=== PATIENT | female | born 1945 | race Caucasian/White ===

== ENCOUNTER 2022-06-16 09:11 | Outpatient (CLI) | payer MEDICARE, SELFPAY ==
--- NOTE | 2022-06-16 10:04 | ECG_ITS ---
Measurements Intervals [place] Rate: 64 P: -2 [place]: 137 QRS: -22 QRSD: 102 T: 7 QT: 429 QTc: 443 Interpretive Statements SINUS RHYTHM BORDERLINE LEFT AXIS DEVIATION [QRS AXIS < -20] NO PREVIOUS ECG AVAILABLE FOR COMPARISON Electronically Signed On 06-16-2022 16:34:14 ACADEMIC SUCCESS COORDINATOR by Avril Saucedo M.D.
[2022-06-16 10:22] LABS: Hematocrit 39.6 % (37.0-47.0); Hemoglobin 12.5 g/dL (12.0-15.0)
[2022-06-16 10:33] LABS: Urine Cotinine NEGATIVE
[2022-06-16 10:40] LABS: Albumin Level 4.4 g/dL (3.5-5.1)
[2022-06-16 11:29] LABS: Estimated Glomerular Filt Rate 54; Glucose 99 mg/dL (65-110)
[2022-06-16 12:47] LABS: Hemoglobin A1C 6.2 % (<5.7)
== END 2022-06-16 09:12 | disposition home or self-care (01) ==
LOC: ANHLAB 09:15
PROVIDERS: PCP Internal Medicine; Visit Provider Orthopaedic Surgery
DX: E78.5 Hyperlipidemia, unspecified (principal); Z79.899 Other long term (current) drug therapy; M17.12 Unilateral primary osteoarthritis, left knee; G47.33 Obstructive sleep apnea (adult) (pediatric); I10 Essential (primary) hypertension; I63.9 Cerebral infarction, unspecified
CPT/HCPCS: 80307; 82040; 82565; 82947; 83036; 85014; 85018; 93005

== ENCOUNTER 2022-07-23 09:40 | Outpatient (CLI) | payer MEDICARE, SELFPAY ==
[2022-07-23 11:14] LABS: Basophils Percent Auto 0.4 % (0.2-1.2); Eosinophils Absolute Auto 0.4 K/mm3 (0-0.3); Eosinophils Percent Auto 5.7 % (0-4.4); Hematocrit 37.6 % (37.0-47.0); Hemoglobin 12.1 g/dL (12.0-15.0); Immature Granulocyte Absolute 0.01 K/mm3 (0.00-0.031); Immature Granulocyte Percent A 0.1 % (0-0.5); Lymphocytes Absolute Auto 1.58 K/mm3 (0.9-3.2); Lymphocytes Percent Auto 23.5 % (18.3-44.2); Mean Corpuscular HGB Conc 32.2 g/dl (32-36); Mean Corpuscular Hemoglobin 28.7 pg (26-34); Mean Corpuscular Volume 89.3 fl (80-100); Mean Platelet Volume 9.6 fl (7.4-10.4); Monocytes Absolute Auto 0.6 K/mm3 (0.1-0.6); Monocytes Percent Auto 9.5 % (2.6-8.5); Neutrophils Absolute Auto 4.1 K/mm3 (1.3-6.7); Neutrophils Percent Auto 60.8 % (45.5-73.1); Platelet Count Result 269 k/mm3 (150-375); Red Blood Count 4.21 M/mm3 (4.2-5.4); Red Cell Distribution Width 13.2 % (11.5-14.5); White Blood Count 6.7 K/mm3 (4.5-10.0)
[2022-07-23 11:31] LABS: Anion Gap 8 mmol/L (8-16); Blood Urea Nitrogen 16 mg/dL (7-17); Calcium 8.8 mg/dL (8.4-10.2); Carbon Dioxide 29 mmol/L (22-30); Chloride 100 mmol/L (98-107); Estimated Glomerular Filt Rate > 60; Glucose 94 mg/dL (65-110); Potassium 4.1 mmol/L (3.4-5.0); Sodium 137 mmol/L (137-145)
== END 2022-07-23 09:41 | disposition home or self-care (01) ==
LOC: ANHSURGERY 09:46
PROVIDERS: Anesthesiology; PCP Internal Medicine; Visit Provider Orthopaedic Surgery
DX: M17.12 Unilateral primary osteoarthritis, left knee (principal); I10 Essential (primary) hypertension; Z01.818 Encounter for other preprocedural examination
CPT/HCPCS: 36415; 80048; 85025; 87081

== ENCOUNTER 2022-08-18 03:10 | Day surgery (SDC) | payer MEDICARE, SELFPAY ==
[2022-07-23 09:52] VITALS: BMI 38.0
--- NOTE | 2022-07-23 10:20 | PC.NURSE ---
Addendum entered by Billie Leonardo RN 07/23/22 10:29: IBURPOFEN 7 DAYS PRE OP. MAY TAKE TYLENOL IF NEEDED FOR PAIN Original Note: Report to the Outpatient Waiting Room, entrance under the green pavilion located off [facility], at time _1130 on date _08/18/22 . Planned Procedure Time: __1330 . Time changes happen often and if your time is changed the preop area will call you the afternoon before. - You and your visitor will be asked to self-screen and do not enter if you have any COVID symptoms. - Only one visitor is requested with a max of two and NO children visitors are allowed at this time. - The patient visitor may be requested to leave or wait in car when not with patient due to distancing restrictions. - A mask is optional within the hospital. Patients may have clear liquids (water, carbonated beverages, clear teas, apple juice) until 3 hours prior to surgery with a maximum of 20 ounces. - No food from midnight until time of surgery - Infants may have breast milk until 4 hours before surgery, formula 6 hours prior to surgery. - Children will be allowed to drink immediately following surgery. If applicable, please bring a bottle or sippy cup to assist with drinking. Juice, water, soda, and popsicles are readily available. For infants on formula, please bring formula the day of surgery. Pacifiers are allowed. Take the following medications with a SIP of water the morning of surgery: ___FLUOXETINE Medications to discontinue per physician ____ASPIRIN 7 DAYS PRE OP PER DR TREJO LAST DOSE 08/10/22. ALL VITAMINS AND SUPPLEMENTS 3 DAYS PRE OP LAST DOSE 08/14/22 TOTAL JOIINT CLASS 08/05/22 AT 10 AM Please no make-up, nail faroese, hairspray, perfume, deodorant, or body powder the day of surgery. No jewelry (including any body piercings) or valuables the day of surgery, leave them at home. Please take a shower or bath the night before, or the morning of, surgery with an antibacterial soap. Wear comfortable, loose fitting clothing. Children are encouraged to wear pajamas. - Jewelry must be removed prior to entering the operating room. Rings and piercings that are not removed may be cut off. - The hospital will not accept responsibility for valuables. - Please leave all valuables, including medications, at home the day of surgery. If you are going home after surgery, a licensed auto driver must drive you home. - NO public transportation without another adult if you receive anesthesia. - We recommend that an adult stay with you for 24 hours following discharge. - We also recommend that you do not drive, make important decision, drink alcoholic beverages, or take any drugs that were not prescribed by your health care provider for at least 24 hours after your discharge time. Follow any additional instructions given to you from your surgeon. If you or anyone in your household have experienced Covid symptoms in the past week, please notify your surgeon or the nurse liaison at the phone number below for possible testing. VERBAL AND WRITTEN instructions given to __PATIENT and asked if any additional questions and then verbalized understanding. Patient advised to call surgeon office or pre surgery nurse liaison [phone] if any additional questions.
[2022-07-23 10:39] VITALS: BP 134/55; PULSE 68; RESP 18; TEMP 36.8; O2SAT 97
--- NOTE | 2022-08-17 15:43 | WPDANESEPPF ---
Anes - Initial Pre Proc Eval Procedure: Operation Date: 08/18/22 13:30 Proposed Procedures p Left Total Knee Arthroplasty - Jarred Rose MD Date/Time: 08/17/22 15:43 Surgeon: Jarred Rose MD Pre Op Diagnosis: primary OA left knee Patient Data Age: 76 Gender: F Height: 1.5 m Weight: 85.4 kg Last Vital Signs Temp 36.8 C 07/23/22 10:39 Pulse 68 07/23/22 10:39 Resp 18 07/23/22 10:39 BP 134/55 L 07/23/22 10:39 Pulse Ox 97 07/23/22 10:39 O2 Del Method Room Air 07/23/22 10:39 Allergies Allergy/AdvReac Type Severity Reaction Status Date / Time codeine Allergy Unknown Nausea and Verified 08/03/22 08:34 Vomiting cod liver oil Allergy unknown Verified 08/03/22 08:34 Home Medications Medication Instructions Recorded Confirmed Type aspirin 81 mg tablet,delayed 81 mg PO DAILY 09/11/19 08/03/22 History release (Adult Aspirin Regimen) fluoxetine 20 mg capsule (Prozac) 20 mg PO DAILY 09/11/19 08/03/22 History hydroxychloroquine 200 mg tablet 200 mg PO DAILY 09/11/19 08/03/22 History multivitamin 1 tablet PO DAILY 09/11/19 08/03/22 History calcium carbonate 600 mg-vitamin 1 tablet PO DAILY 07/23/22 08/03/22 History D3 10 mcg (400 unit) tablet (Calcium 600 + D(3)) dicyclomine 10 mg capsule 10 mg PO PRN PRN Diarrhea 07/23/22 08/03/22 History famotidine 20 mg tablet (Pepcid) 20 mg PO PRN PRN Heartburn 07/23/22 08/03/22 History ibuprofen 400 mg tablet 400 mg PO Q6H PRN Pain 07/23/22 08/03/22 History triamterene 37.5 1 cap PO DAILY 07/23/22 08/03/22 History mg-hydrochlorothiazide 25 mg capsule Patient hx anesthesia problems: none Family hx anesthesia problems: none Results Review: All pre-operative results and documents have been reviewed as part of the pre-operative evaluation. [facility] Past Medical History Medical History Brainstem stroke syndrome Candidal intertrigo CVA (cerebral vascular accident) (~2010) Depression GERD (gastroesophageal reflux disease) Hidradenitis History of stroke Hyperlipidemia Hypersomnia with sleep apnea Hypertension Obstructive sleep apnea Osteoarthritis of right shoulder Severe obesity Sleep apnea Vitamin D deficiency Surgical History Surgical History History of appendectomy (~2017) History of arthroscopic knee surgery (~2000) History of breast biopsy (~1998) History of carpal tunnel release History of cataract extraction (~2000) History of cataract extraction (~2003) History of elbow surgery (~1991) History of knee joint replacement (~05/23/13) History of lumpectomy (~1990) History of thumb surgery (~2002) Family History Family History Father Hypertension Cerebrovascular accident Other Breast cancer Social History Social History Smoking packs per day: 0.5 Smoking cigarettes per day: 10.0 Years smoked: 15 Smoking pack-years: 7.50 Smoking status: Former smoker Tobacco type: cigarettes Smoking end date: 07/05/76 Additional smoking assessment comments: DENIES ANY FORM OF TOBACCO USE Alcohol intake: former Alcohol use details: RECOVERING ALCOHOLIC SINCE 1983 Living arrangements: alone Spiritual care concerns: No Anes - Eval Final PreProcedure Day of Procedure 08/17/22 15:43 Patient weight: obese Heart: regular rate and rhythm Lungs: clear to auscultation and normal air movement Airway: Mallampati scale class II Neurological: alert and oriented Last oral intake: >/= 8 hours ASA classification: III Emergent: no Anesthetic plan: proceed Anesthesia type and monitoring: general LMA Results Review: All pre-operative results and documents have been reviewed as part of the pre-operative evaluation. Informed Consent: The patient's anesthetic pl
[2022-08-18] VITALS (12 sets, daily range): BP systolic 119–154; BP diastolic 51–76; PULSE 70–91; RESP 12–20; TEMP 36.3–37; O2SAT 93–100
--- NOTE | ~2022-08-18 | XR_ITS ---
EXAMINATION: XR knee LT 2V DATE: 08/18/2022 16:31 INDICATION: Total left knee arthroplasty. Postop. TECHNIQUE: 2 views of left knee were obtained. COMPARISON: Left knee radiographs 06/03/2022 FINDINGS: There is a total left knee arthroplasty with patellar resurfacing in near-anatomic alignmen t. No fracture. There is gas in the knee joint, consistent with recent surgery. IMPRESSION: 1. Total left knee arthroplasty in near-anatomic alignment. Reviewed, dictated and finalized at location A. SSRS DEVELOPER
--- NOTE | 2022-08-18 07:26 | WPDHPUPDATE1 ---
History and Physical Update Update Date/Time: 08/18/22 07:26 History and Physical has been reviewed, including an updated exam of the patient. There are NO changes in the patient's condition. Risks, benefits, and alternatives have been discussed and questions answered. Patient agrees to proceed with procedure.
--- NOTE | 2022-08-18 11:33 | WPDANESPNB ---
Anes - Peripheral Nerve Block Date/Time: 08/18/22 11:33 I have discussed with the patient/family/POA the placement of a peripheral nerve block for post-operative pain management, including associated risks, benefits, complications, and side effects. Alternative methods of post-operative analgesia were detailed. Questions were solicited and answers provided to the satisfaction of the patient/family/POA. Time-Out: A pre-procedural Time-Out was completed immediately before starting the procedure and confirmed: Patient Identification, Site, Procedure, Patient Position and the Availability of Requisite Equipment. Clinical Indications: Acute post-operative pain management requested by the operative surgeon. Nerve Block Insertion Note Anes-nerve block: adductor canal left Patient position: supine Skin prep: chlorhexidine Needle: 22 gauge, stimulating, insulated echogenic needle. Needle length: 80 mm Technique: ultrasound Technique comment: in plane Injectate: bupivacaine 0.25% with epi 5 mcg/ml (30cc) Observations: tolerated well Complications: none Procedure start time:: 1345 Procedure end time:: 1350
[2022-08-18] MEDS: TRANEXAMIC ACID 1,000MG/ISO100 1,000 MG/100 ML BAG 200 MG IVPB (12:00)
[2022-08-18] MEDS: LACTATED RINGERS 1,000 ML 30 ML IV CONT ×2 (12:00→16:09)
[2022-08-18] MEDS: ACETAMINOPHEN 500 MG TABLET 1000 MG PO (12:00)
[2022-08-18] MEDS: ceFAZolin 2 GM/D5W 50 ML 2 GM/50 ML BAG IVPB ×2 (14:06→21:07)
[2022-08-18] MEDS: GENTAMICIN BONE CEMENT REFOBACIN 1 EACH TOPICAL (14:50)
[2022-08-18] MEDS: TRANEXAMIC ACID 1,000 MG/10 ML AMPUL 1000 MG IV PUSH (15:46)
[2022-08-18] MEDS: fentaNYL CITRATE INJ (*CRX) 100 MCG/2 ML VIAL 25 MCG IV PUSH ×4 (16:26→16:44)
--- NOTE | 2022-08-18 17:12 | ADMGEN ---
This patient, Ely Chin, was admitted to Medical Room 252-01. Patient/family oriented to hospital policies and general routines including ID bracelet, bed and alarms, visiting hours, pain management, procedures, bathroom and other care routines, personal items, smoking policy, room service/diet, and visiting hours. Information on how to activate the Rapid Response Team has been discussed. Patient/Family are encouraged to report perceived risks to care and to ask questions if they do not understand what they are told or what they should do.
--- NOTE | 2022-08-18 17:21 | W.PM.PROC2 ---
Procedure Note - Detailed Date of Procedure 08/18/22 Pre-op Diagnosis primary OA left knee Post-op Diagnosis Same Procedure Performed Total knee arthroplasty, left. Surgeon Jarred Rose MD Pipe Line Maintenance Supervisor Kacy Stephenson PA-C Anesthesia General and Regional (subsartorial block) Findings Good bone quality. Moderate medial release. Significant out-toeing and preoperative contracture. 15 degree flexion contracture. Description of Procedure The patient was brought to the operating room. A general anesthetic was administered. The leg was prepped and draped in the usual sterile fashion. The limb was elevated and the tourniquet inflated to 300 mmHg during initial exposure, and cementation. A longitudinal incision was created along the medial border of the patella and patellar tendon, and a trivector approach to the knee was performed. A moderate medial release was taken. The knee was then flexed. The osteophytes were carefully removed. The intramedullary guide was placed in the femoral canal. The distal femoral resection was then taken with the oscillating saw. The collateral ligaments were carefully protected. The tibia was carefully exposed. The jig was applied, and the proximal tibia was resected according to preoperative plan. The knee was balanced in extension. Appropriate releases were taken where needed. The anterior cruciate ligament and meniscal remnants were removed. The posterior cruciate ligament was preserved. The patella was measured. Patellar resection was carried out with the oscillating saw. The lug holes drilled. The femur was sized and rotation assessed using a combination of gap balancing, posterior referencing, and the AP axis. The 4 in 1 cutting block was used to finish the femoral cuts after equal gaps were assured. The osteophytes were carefully removed from the back of the knee. The knee was copiously irrigated with antibiotic solution periodically throughout the procedure. The meniscal remnants were removed. The spacer block was used to confirm equal flexion and extension gaps. No further releases were needed. The tibia was sized and broached. The bony surfaces were prepared for cementing with pulsatile lavage. The real tibia was cemented into position. The femur was press-fit. The patella was press-fit. Excess cement was carefully removed. Patellar tracking was carefully assessed. No additional releases were required. Dilute sterile Betadine soak performed for three minutes. Copious irrigation then performed. The wound was closed with #1 Vicryl suture, #2, 2-0, and 3-0 barbed suture, followed by Steri-Strips. A sterile bulky dressing was applied. Meticulous hemostasis was maintained throughout the procedure, and the bipolar cautery device was used. The pain relieving mixture was injected into the periarticular tissues during the procedure. There were no complications. The patient was extubated and brought to the recovery room in stable condition after the application of sterile dressing with Luther bandage. Implants [employer] Triathlon knee system, low profile cemented tibia size 3, press-fit cruciate retaining femoral component size 3 ,and an 11 mm cruciate stabilizing polyethylene insert. 32mm asymmetric metal backed tritanium patella component. Estimated Blood Loss 100 Drains No Pathology None sent Complications No immediate complications Condition Stable Disposition PACU [facility] Billing Surgery - Charge Forward: Surgery Billing
[2022-08-18] MEDS: oxyCODONE HCL (*CRX) 5 MG TAB IR PO ×2 (17:29→21:07)
[2022-08-18] MEDS: SENNA/DOCUSATE SODIUM TABLET 2 TAB PO (17:29)
[2022-08-18] MEDS: SODIUM CHLORIDE 0.9% IV 1,000 ML 125 ML IV CONT (17:41)
[2022-08-18] MEDS: MELOXICAM 7.5 MG TABLET PO (18:10)
[2022-08-18] MEDS: ASPIRIN 81 MG ENTERIC TABLET PO (18:10)
[2022-08-18] MEDS: CYCLOBENZAPRINE HCL 10 MG TABLET PO (19:26)
--- NOTE | 2022-08-18 19:31 | PC.NURSE ---
pt up to restroom x1 assist with walker, and up to chair this shift, encouraged to stay up for a little while educated about importances of up out of bed after surgery. Encouraged to ambulate as tolerated.
[2022-08-19] MEDS: ceFAZolin 2 GM/D5W 50 ML 2 GM/50 ML BAG IVPB (05:01)
[2022-08-19 05:02] VITALS: BP 140/64; PULSE 72; RESP 18; TEMP 36.8; O2SAT 94
[2022-08-19 06:37] LABS: Basophils Percent Auto 0.1 % (0.2-1.2); Eosinophils Percent Auto 0.3 % (0-4.4); Hematocrit 31.3 % (37.0-47.0); Hemoglobin 9.8 g/dL (12.0-15.0); Immature Granulocyte Absolute 0.03 K/mm3 (0.00-0.031); Immature Granulocyte Percent A 0.3 % (0-0.5); Lymphocytes Absolute Auto 0.75 K/mm3 (0.9-3.2); Mean Corpuscular HGB Conc 31.3 g/dl (32-36); Mean Corpuscular Hemoglobin 28.4 pg (26-34); Mean Corpuscular Volume 90.7 fl (80-100); Mean Platelet Volume 9.6 fl (7.4-10.4); Monocytes Absolute Auto 0.9 K/mm3 (0.1-0.6); Monocytes Percent Auto 8.3 % (2.6-8.5); Neutrophils Absolute Auto 9.1 K/mm3 (1.3-6.7); Platelet Count Result 226 k/mm3 (150-375); Red Blood Count 3.45 M/mm3 (4.2-5.4); Red Cell Distribution Width 13.6 % (11.5-14.5); White Blood Count 10.8 K/mm3 (4.5-10.0)
[2022-08-19 06:50] LABS: Anion Gap 6 mmol/L (8-16); Blood Urea Nitrogen 16 mg/dL (7-17); Calcium 7.6 mg/dL (8.4-10.2); Carbon Dioxide 27 mmol/L (22-30); Chloride 98 mmol/L (98-107); Estimated Glomerular Filt Rate > 60; Glucose 109 mg/dL (65-110); Potassium 4.2 mmol/L (3.4-5.0); Sodium 131 mmol/L (137-145)
[2022-08-19] MEDS: oxyCODONE HCL (*CRX) 5 MG TAB IR PO (06:54)
--- NOTE | 2022-08-19 08:02 | P.PNAN_ITS ---
Anes - Prog Note Post-Op Date/Time: 08/19/22 08:02 Cardiovascular status: normal Respiratory status: normal Airway patency: baseline Mental status: baseline Post-Op hydration status: normal Vital Signs: Last Vital Signs Temp 36.8 C 08/19/22 05:02 Pulse 72 08/19/22 05:02 Resp 18 08/19/22 05:02 BP 140/64 08/19/22 05:02 Pulse Ox 94 08/19/22 05:02 O2 Del Method Room Air 08/18/22 19:33 O2 Flow Rate 2 08/18/22 17:58 Pain Score (VAS): 0 I/O: Intake & Output 08/18/22 08/19/22 08/19/22 23:59 07:59 15:59 Intake Total 350 1100 Output Total 1000 Balance 350 100 Laboratory Tests 08/19/22 06:02 08/19/22 06:02 08/18/22 08/19/22 08/19/22 11:42 06:02 06:02 WBC 10.8 H RBC 3.45 L Hgb 9.8 L Hct 31.3 L MCV 90.7 MCH 28.4 MCHC 31.3 L RDW 13.6 Plt Count 226 MPV 9.6 Immature Gran % (Auto) 0.3 Neut % (Auto) 84.0 H Lymph % (Auto) 7.0 L [place] % (Auto) 8.3 Eos % (Auto) 0.3 Baso % (Auto) 0.1 L Lymph # (Auto) 0.75 L [place] # (Auto) 0.9 H Eos # (Auto) 0.0 Baso # (Auto) 0.0 Abs Immat Gran (auto) 0.03 Absolute Neuts (auto) 9.1 H Absolute Nucleated RBC 0.0 Nucleated RBC % 0.0 Sodium 131 L Potassium 4.2 Chloride 98 Carbon Dioxide 27 Anion Gap 6 L BUN 16 Creatinine 0.90 Estim Creat Clear Calc Not Reportable Estimated GFR > 60 Glucose 109 Calcium 7.6 L Blood Type AB Positive Antibody Screen Negative Post-procedural complaints: none Patient Feedback: Patient satisfied with anesthetic care.
--- NOTE | 2022-08-19 08:20 | PM.DS ---
DS: Admitting Diagnosis Discharge Date 08/19/22 Admitting Diagnosis OA knee Left DS: Discharge Diagnosis Discharge Diagnosis (1) Status post total left knee replacement: Code(s): Z96.652 - Presence of left artificial knee joint Status: Acute Assessment and Plan: Postop day 1: Left total knee arthroplasty. Patient tolerated procedure well. No complications. Pain manageable with pain medication. No numbness or tingling. We had a lengthy discussion regarding postoperative wound care, limitations, expectations, and exercises. Patient shows good understanding. She has had initial physical therapy and is tolerating it well. DVT prophylaxis: 81 mg baby aspirin b.i.d. for 14 days. Patient has followup appointment with Dr. Rose in 3 weeks. DS: Summary Hospital Course Reason for hospitalization: Total knee arthroplasty Hospital Course: Patient tolerated procedure well. Has had initial PT/OT. Status at Discharge Functional status at discharge: uses cane/walker Overall status at discharge: patient is progressing back to baseline Time Spent with Patient Time attestation: Total time spent providing and/or coordinating discharge services: Exam Narrative: Overweight 76-year-old female. Resting comfortably in chair. Alert and oriented x3. No acute distress. Wearing compression socks bilaterally. Dressing intact without drainage. Mild swelling. No ecchymosis. No erythema. No hematoma. Range of motion limited due to pain. Calf nontender. Neurologic status intact. No varicosities. Distal pulses palpable. DS: Data Data Completed and Pending Labs on day of discharge: Labs from last 24 hours 08/19/22 08/19/22 08/18/22 06:02 06:02 11:42 WBC 10.8 H RBC 3.45 L Hgb 9.8 L Hct 31.3 L MCV 90.7 MCH 28.4 MCHC 31.3 L RDW 13.6 Plt Count 226 MPV 9.6 Immature Gran % (Auto) 0.3 Neut % (Auto) 84.0 H Lymph % (Auto) 7.0 L [place] % (Auto) 8.3 Eos % (Auto) 0.3 Baso % (Auto) 0.1 L Lymph # (Auto) 0.75 L [place] # (Auto) 0.9 H Eos # (Auto) 0.0 Baso # (Auto) 0.0 Abs Immat Gran (auto) 0.03 Absolute Neuts (auto) 9.1 H Absolute Nucleated RBC 0.0 Nucleated RBC % 0.0 Sodium 131 L Potassium 4.2 Chloride 98 Carbon Dioxide 27 Anion Gap 6 L BUN 16 Creatinine 0.90 Estim Creat Clear Calc Not Reportable Estimated GFR > 60 Glucose 109 Calcium 7.6 L Blood Type AB Positive Antibody Screen Negative Discharge Plan Discharge Patient Disposition: Home, Self-Care Discharge Instructions: See green instruction sheets Stand Alone Forms: General Discharge Instructions Follow-up/Referrals: Kacy Stephenson PA [Physician Dimension Specification Inspector] - Discharge Medications: New meloxicam 15 mg tablet 15 mg PO DAILY Qty: 30 0RF Rx Instructions: Cut in half. Take 1/2 in morning and 1/2 at night. Take with food. Stop if stomach upset. prednisone 5 mg tablet 5 mg PO DAILY 21 Days Qty: 21 0RF aspirin 81 mg tablet,delayed release (DR/EC) 81 mg PO BID 14 Days Qty: 28 0RF oxycodone-acetaminophen 5-325 mg tablet 1 - 2 tablet PO Q4-6H MDD 6 PRN (Reason: pain) Qty: 30 0RF Continued hydroxychloroquine 200 mg tablet 400 mg PO DAILY Label Comments: TAKES 400 MG ONCE A DAY multivitamin Tablet 1 tablet PO DAILY fluoxetine [Prozac] 20 mg capsule 20 mg PO DAILY dicyclomine 10 mg capsule 10 mg PO PRN PRN (Reason: Diarrhea) calcium carbonate-vitamin D3 [Calcium 600 + D(3)] 600 mg-10 mcg (400 unit) Tablet 1 tablet PO DAILY triamterene-hydrochlorothiazid 37.5-25 mg capsule 1 cap PO DAILY famotidine [Pepcid] 20 mg Tablet 20 mg PO PRN PRN (Reason: Heartburn) ibuprofen 400 mg Tablet 400 mg PO Q6H PRN (Reason: Pain) Held aspirin [Adult Aspirin Regimen] 81 mg tablet,delayed release (DR/EC) 81 mg PO DAILY Hold In
[2022-08-19] MEDS: predniSONE 5 MG TABLET PO (08:42)
[2022-08-19 08:43] VITALS: O2SAT 91
[2022-08-19] MEDS: ASPIRIN 81 MG ENTERIC TABLET PO (08:43)
[2022-08-19] MEDS: SENNA/DOCUSATE SODIUM TABLET 2 TAB PO (08:43)
[2022-08-19] MEDS: FLUoxetine HCL 20 MG CAPSULE PO (08:44)
[2022-08-19] MEDS: HYDROXYCHLOROQUINE SULFATE 200 MG TABLET 400 MG PO (08:45)
[2022-08-19] MEDS: MELOXICAM 7.5 MG TABLET PO (08:45)
[2022-08-19] MEDS: TRIAMTERENE 37.5 MG/HCTZ 25 MG (MAXZIDE) TABLET 1 TAB PO (11:04)
[2022-08-19] MEDS: oxyCODONE HCL (*CRX) 5 MG TAB IR 10 MG PO (11:25)
== END 2022-08-19 13:45 | disposition home or self-care (01) ==
LOC: ANHSURGERY 16:28 → ANH2MED 17:06
PROVIDERS: Physician Assistant Surgical; PCP Internal Medicine; Visit Provider Orthopaedic Surgery
PROC: (CPT 27447; principal; 2022-08-18 13:30)
DX: M17.12 Unilateral primary osteoarthritis, left knee (principal); G89.18 Other acute postprocedural pain; I10 Essential (primary) hypertension; E78.5 Hyperlipidemia, unspecified; G47.33 Obstructive sleep apnea (adult) (pediatric); K21.9 Gastro-esophageal reflux disease without esophagitis; F32.A Depression, unspecified; E55.9 Vitamin D deficiency, unspecified; Z86.73 Personal history of transient ischemic attack (TIA), and cerebral infarction without residual deficits; Z79.82 Long term (current) use of aspirin; Z87.891 Personal history of nicotine dependence; F10.21 Alcohol dependence, in remission; E66.9 Obesity, unspecified; Z68.38 Body mass index [BMI] 38.0-38.9, adult
CPT/HCPCS: 27447; 64447; 36415; 73560; 80048; 85025; 86850; 86900; 86901; 87081; 97110; 97161; 97165; 97530; 97535; A9270; C1713; C1776; J0131; J0171; J0690; J1100; J1885; J2405; J2704; J2795; J3010; J7030; J7120; J7512

== ENCOUNTER 2022-11-05 16:17 | Outpatient (CLI) | payer MEDICARE, SELFPAY ==
[2022-11-05 16:59] LABS: Basophils Percent Auto 0.5 % (0.2-1.2); Eosinophils Absolute Auto 0.4 K/mm3 (0-0.3); Eosinophils Percent Auto 4.4 % (0-4.4); Hematocrit 38.2 % (37.0-47.0); Hemoglobin 11.9 g/dL (12.0-15.0); Immature Granulocyte Absolute 0.02 K/mm3 (0.00-0.031); Immature Granulocyte Percent A 0.3 % (0-0.5); Lymphocytes Absolute Auto 1.81 K/mm3 (0.9-3.2); Lymphocytes Percent Auto 22.8 % (18.3-44.2); Mean Corpuscular HGB Conc 31.2 g/dl (32-36); Mean Corpuscular Hemoglobin 28.3 pg (26-34); Mean Corpuscular Volume 90.7 fl (80-100); Mean Platelet Volume 9.6 fl (7.4-10.4); Monocytes Absolute Auto 0.8 K/mm3 (0.1-0.6); Monocytes Percent Auto 10.5 % (2.6-8.5); Neutrophils Absolute Auto 4.9 K/mm3 (1.3-6.7); Neutrophils Percent Auto 61.5 % (45.5-73.1); Platelet Count Result 329 k/mm3 (150-375); Red Blood Count 4.21 M/mm3 (4.2-5.4); Red Cell Distribution Width 13.8 % (11.5-14.5); White Blood Count 7.9 K/mm3 (4.5-10.0)
[2022-11-05 17:10] LABS: CRP 0.9 mg/dL (<1.0)
[2022-11-05 17:23] LABS: Erythrocyte Sedimentation Rate 23 mm/hr (0-20)
== END 2022-11-05 16:18 | disposition home or self-care (01) ==
PROVIDERS: PCP Internal Medicine; Visit Provider Orthopaedic Surgery
DX: M25.562 Pain in left knee (principal); M19.011 Primary osteoarthritis, right shoulder; Z96.652 Presence of left artificial knee joint
CPT/HCPCS: 36415; 85025; 85652; 86140

== ENCOUNTER 2023-03-24 15:37 | Emergency (ER) | payer MEDICARE, SELFPAY ==
[2023-03-24 15:43] VITALS: BP 145/62; PULSE 83; RESP 16; TEMP 36.2; O2SAT 96
--- NOTE | 2023-03-24 16:00 | ED.FALL ---
HPI - Fall General Stated Complaint: Fall Injury/Face,Head,Left Knee/Left Hand Time Seen by Provider: 03/24/23 16:04 Source: patient Mode of arrival: ambulatory Limitations: no limitations History of Present Illness HPI Narrative: 77-year-old female presents with concern for fall. Reports just prior to arrival she was walking her dog when she fell and hit her head and face. She reports abrasions to her knee, nose, forehead. She reports when she was walking in the clinic she felt dizziness. She denies any vomiting or loss of consciousness MD complaint: fall Related Data Home Medications Medication Instructions Recorded Confirmed fluoxetine 20 mg capsule (Prozac) 20 mg PO DAILY 09/11/19 03/24/23 hydroxychloroquine 200 mg tablet 400 mg PO DAILY 09/11/19 03/24/23 multivitamin 1 tablet PO DAILY 09/11/19 03/24/23 calcium carbonate 600 mg-vitamin 1 tablet PO DAILY 07/23/22 03/24/23 D3 10 mcg (400 unit) tablet (Calcium 600 + D(3)) dicyclomine 10 mg capsule 10 mg PO PRN PRN Diarrhea 07/23/22 03/24/23 famotidine 20 mg tablet (Pepcid) 20 mg PO PRN PRN Heartburn 07/23/22 03/24/23 ibuprofen 400 mg tablet 400 mg PO Q6H PRN Pain 07/23/22 03/24/23 triamterene 37.5 1 cap PO DAILY 07/23/22 03/24/23 mg-hydrochlorothiazide 25 mg capsule Allergies Allergy/AdvReac Type Severity Reaction Status Date / Time codeine Allergy Unknown Nausea and Verified 02/26/23 08:40 Vomiting cod liver oil Allergy unknown Verified 02/26/23 08:40 Review of Systems Review of Systems: CONSTITUTIONAL: Denies malaise, chills, sweats, or fever. EYES: Denies visual changes CARDIOVASCULAR: Denies chest pain, palpitations, or edema. RESPIRATORY: Denies cough or dyspnea. GASTROINTESTINAL: Denies nausea, vomiting SKIN: Reports skin tears MUSCULOSKELETAL: Denies musculoskeletal pain NEUROLOGIC: Reports headache and slight dizziness. All systems reviewed & are unremarkable except as noted in HPI and below PMFSH Past Medical History Medical History Brainstem stroke syndrome Candidal intertrigo CVA (cerebral vascular accident) (~2010) Depression GERD (gastroesophageal reflux disease) Hidradenitis History of stroke Hyperlipidemia Hypersomnia with sleep apnea Hypertension Obstructive sleep apnea Osteoarthritis of right shoulder Severe obesity Sleep apnea Vitamin D deficiency Surgical History Surgical History History of appendectomy (~2017) History of arthroscopic knee surgery (~2000) History of breast biopsy (~1998) History of carpal tunnel release History of cataract extraction (~2000) History of cataract extraction (~2003) History of elbow surgery (~1991) History of knee joint replacement (~05/23/13) History of lumpectomy (~1990) History of thumb surgery (~2002) History of total left knee replacement (~08/18/22) Family History Family History Father Hypertension Cerebrovascular accident Other Breast cancer Social History Social History Smoking packs per day: 0.5 Smoking cigarettes per day: 10.0 Years smoked: 15 Smoking pack-years: 7.50 Smoking status: Former smoker Tobacco type: cigarettes Second hand tobacco smoke exposure: No Smoking end date: 07/05/76 Alcohol intake: never Alcohol use details: RECOVERING ALCOHOLIC SINCE 1983 Substance use: never Lack of Transportation: No Lack of Food: Never True Current Housing: I Have Housing Concerned About Future Housing: No Difficulty Paying Gas/Electric Bills: No Difficulty Paying for Meds: No Currently Unemployed: No Education: High School Diploma/GED Difficulty w/ Childcare or Family Care: No Living arrangements: alone Spiritual care concerns: No Comments At time of signature, agree with nursing past medical
== END 2023-03-24 16:15 | disposition short-term general hospital (02) ==
PROVIDERS: Emergency Provider Nurse Practitioner; PCP Internal Medicine
DX: S00.81XA Abrasion of other part of head, initial encounter (principal); S00.31XA Abrasion of nose, initial encounter; S80.212A Abrasion, left knee, initial encounter; S80.211A Abrasion, right knee, initial encounter; E78.5 Hyperlipidemia, unspecified; I10 Essential (primary) hypertension; Z79.899 Other long term (current) drug therapy; Z79.1 Long term (current) use of non-steroidal anti-inflammatories (NSAID); Z86.73 Personal history of transient ischemic attack (TIA), and cerebral infarction without residual deficits; Z87.891 Personal history of nicotine dependence; W18.39XA Other fall on same level, initial encounter; Y93.K1 Activity, walking an animal
CPT/HCPCS: 99213; G0463

== ENCOUNTER 2023-07-30 09:07 | Outpatient (CLI) | payer MEDICARE, SELFPAY ==
--- NOTE | ~2023-07-30 | XR_ITS ---
Left Shoulder Technique: AP and scapular Y views were obtained. Clinical History: Pain Findings: No fracture or dislocation is seen. Osseous alignment is anatomic. There is moderate AC olga lidia nt degenerative change. There is minimal glenohumeral joint degenerative change. Soft tissues are unr emarkable. Impression: Degenerative changes, as above. Reviewed, dictated and finalized at location . CAR SALESPERSON Impression: Degenerative changes, as above.
== END 2023-07-30 09:08 | disposition home or self-care (01) ==
LOC: ANHIMG 09:09
PROVIDERS: PCP Internal Medicine; Visit Provider Orthopaedic Surgery
DX: M19.012 Primary osteoarthritis, left shoulder (principal)
CPT/HCPCS: 73030

== ENCOUNTER 2023-08-27 08:07 | Outpatient (CLI) | payer MEDICARE, SELFPAY ==
--- NOTE | ~2023-08-27 | XR_ITS ---
Left Knee Technique: AP, lateral, and sunrise views were obtained. Clinical History: Arthroplasty follow-up COMPARISON: 02/26/2023 Findings: No fracture or dislocation is seen. Left knee arthroplasty in place, without evidence of arriola rdware complication. Soft tissues are unremarkable. No joint effusion is seen. Impression: No acute abnormality. Left knee arthroplasty in place. Reviewed, dictated and finalized at location M. BUYER Impression: No acute abnormality. Left knee arthroplasty in place.
== END 2023-08-27 08:08 | disposition home or self-care (01) ==
LOC: ANHIMG 08:09
PROVIDERS: PCP Internal Medicine; Visit Provider Orthopaedic Surgery
DX: Z96.652 Presence of left artificial knee joint (principal)
CPT/HCPCS: 73562